=== PATIENT | male | born 1970 | race Caucasian/White ===

== ENCOUNTER 2017-06-01 07:30 | Outpatient (RCR) | payer OTHER ==
[~2017-06-01 07:30] MED LIST: ADVIL200 MG PO; LEVAQUIN 750MG750 M1 PO; NIACIN TIME RE500 MG PO; PROVENTIL0.09 MG/A1 IH; TUSS PO; TYLENOL 500MG500 MG PO; ZOFRAN 4MG T4 MG/TAB PO
== END 2017-06-09 11:23 | disposition home or self-care (01) ==
LOC: WSPT 07:30
DX: Z47.89 Encounter for other orthopedic aftercare (principal); Z98.890 Other specified postprocedural states

== ENCOUNTER 2018-02-10 06:33 | Day surgery (SDC) | payer OTHER ==
[~2018-02-10] VITALS: Ht 180.3 cm; Wt 83.2 kg
[~2018-02-10 06:33] MED LIST changes: +ADVIL PM 38 MG-1 TAB PO; -ADVIL200 MG PO; -TYLENOL 500MG500 MG PO; +TYLENOL PM EXTR1 TA1 PO
[2018-02-10] MEDS ORDERED: VALTREX 50500 MG/TAB PO (06:54)
[2018-02-10] MEDS ORDERED: MASON NATURAL1200 MG PO (06:54)
[2018-02-10] MEDS ORDERED: ONE DAILY1 TA1 PO (06:54)
[2018-02-10] MEDS ORDERED: PROSVENT PO (06:55)
[2018-02-10 07:10] VITALS: BP 131/88; PULSE 78; TEMP 98.2
[2018-02-10 08:40] VITALS: BP 122/78; PULSE 73; TEMP 97.8
[2018-02-10 08:55] VITALS: BP 129/100; PULSE 74
[2018-02-10 09:10] VITALS: BP 114/81; PULSE 74
== END 2018-02-10 09:25 | disposition home or self-care (01) ==
LOC: SDCO 06:33
DX: Z12.11 Encounter for screening for malignant neoplasm of colon (principal); K92.1 Melena; E78.00 Pure hypercholesterolemia, unspecified; R19.7 Diarrhea, unspecified; J18.9 Pneumonia, unspecified organism; Z83.79 Family history of other diseases of the digestive system; Z80.0 Family history of malignant neoplasm of digestive organs
CPT/HCPCS: J2250; J2405; J3010

== ENCOUNTER 2021-03-13 12:50 | Emergency (ER) | payer OTHER ==
[~2021-03-13] VITALS: Ht 180.3 cm; Wt 80.5 kg
[~2021-03-13 12:50] MED LIST changes: +MASON NATURAL1200 MG PO; +ONE DAILY1 TA1 PO; +PROSVENT PO; +VALTREX 50500 MG/TAB PO
[2021-03-13 14:35] LABS: BASO % 0.2 % (0.0-2.0); GRAN # 3.1 K/mm3 (1.4-6.5); GRAN % 69.5 % (42.2-75.2); HEMATOCRIT 47.4 % (42.0-52.0); HEMOGLOBIN 16.6 g/dl (13.5-18.0); MEAN CELL VOLUME 87 fl (80.0-100.0); MEAN CORPUSCULAR HEMOGLOBIN 31 pg (27.0-31.0); MEAN CORPUSCULAR HGB CONC 35 g/dl (33.0-37.0); MEAN PLATELET VOLUME 10.3 fl (7.4-10.4); MONO # 0.4 K/mm3 (0.1-0.6); MONO % 8.1 % (1.7-9.3); PLATELET COUNT 158 K/mm3 (130-400); RED BLOOD COUNT 5.43 M/mm3 (4.20-5.60); REDCELL DISTRIBUTION WIDTH-CV 12.2 % (11.5-14.5)
[2021-03-13 15:34] LABS: ALBUMIN 3.7 gm/dL (3.5-5.0); BILIRUBIN,TOTAL 0.6 mg/dL (0.2-1.2); CALCIUM 9.2 mg/dL (8.4-10.2); CREATININE, serum 1.12 mg/dL (0.72-1.25); POTASSIUM 3.9 mmol/L (3.5-4.5); TOTAL PROTEIN 7.7 gm/dL (6.2-8.1)
[2021-03-13 17:30] VITALS: BP 136/89; PULSE 82; TEMP 98.2
== END 2021-03-13 17:40 | disposition home or self-care (01) ==
LOC: COL.ER 12:50
PROVIDERS: Student in an Organized Health Care Education/Training Program
DX: U07.1 COVID-19 (principal); J12.82 Pneumonia due to coronavirus disease 2019
CPT/HCPCS: J7030; M0243; Q0244

== ENCOUNTER 2021-06-12 06:48 | Day surgery (SDC) | payer OTHER ==
[~2021-06-12] VITALS: Ht 180.3 cm; Wt 89.2 kg
[~2021-06-12 06:48] MED LIST changes: +ONE DAILY ESSE0.5 MG PO; -ONE DAILY1 TA1 PO
[2021-06-12 07:31] VITALS: BP 138/79; PULSE 88; TEMP 97.8
[2021-06-12] MEDS ORDERED: DESYREL 50MG50 MG PO (08:04)
[2021-06-12] MEDS ORDERED: ADVIL200 MG PO (08:06)
[2021-06-12] MEDS ORDERED: FORTAMET500 M1 PO (08:07)
[2021-06-12 08:40] VITALS: BP 136/81; PULSE 85; TEMP 98.3
--- NOTE | 2021-06-12 08:40 | NUR ---
Patient arrived from the endo suite alert and oriented x3. Vitals obtained. The patient requested ice water and a warm muffin to eat. Report obtained from NEGRA Jimenes. Call rebollar is at bedside. Will continue to monitor per intervals.
[2021-06-12 08:55] VITALS: BP 135/85; PULSE 83
--- NOTE | 2021-06-12 08:55 | NUR ---
Patient is tolerating his ice water and muffin well. Denies neusea. No vomiting. Vitals obtained. Patient expressed desire to be discharged.
[2021-06-12 09:10] VITALS: BP 121/83; PULSE 78
--- NOTE | 2021-06-12 09:15 | NUR ---
Vitals obtained and are WNL. IV discontinued at this time due to impending discharge. Catheter tip intact. Pressure dressing applied. No redness or swelling noted. Discharge instructions and educational material was reviewed with the patient and his . Both verbalized understanding and the patient signed the realted paperwork. The patient said that he has spoken to the DR. The patient denied needing assistance changing.
--- NOTE | 2021-06-12 09:23 | NUR ---
The patient was escorted to the patient entrence by NEGRA Schneider. The patient has the discharge information packet. The patient was transferred into the care of his , who is present to drive.
== END 2021-06-12 09:25 | disposition home or self-care (01) ==
LOC: SDCO 06:48
DX: Z12.11 Encounter for screening for malignant neoplasm of colon (principal); D12.8 Benign neoplasm of rectum; E11.9 Type 2 diabetes mellitus without complications; E78.5 Hyperlipidemia, unspecified; Z79.84 Long term (current) use of oral hypoglycemic drugs; Z79.899 Other long term (current) drug therapy; Z79.891 Long term (current) use of opiate analgesic; Z80.0 Family history of malignant neoplasm of digestive organs
CPT/HCPCS: J2704; J7120

== ENCOUNTER → 2022-09-15 | Outpatient (CLI) | payer OTHER ==
[~2022-09-15] MED LIST changes: +ADVIL200 MG PO; +DESYREL 50MG50 MG PO; +FORTAMET500 M1 PO
== END ==
LOC: COL.RAD 12:18
DX: R22.1 Localized swelling, mass and lump, neck (principal); M75.32 Calcific tendinitis of left shoulder

== ENCOUNTER → 2023-12-09 | Outpatient (CLI) | payer OTHER | LOC: COL.VAS 08:11 | DX: G47.33 Obstructive sleep apnea (adult) (pediatric) (principal) ==